=== PATIENT | male | born 1955 | race Caucasian/White ===

== ENCOUNTER 2019-04-16 10:51 | Emergency (ER) | payer OTHER, MEDICAID ==
[2019-04-16 11:43] LABS: % BASOPHILS 0.5 % (0.0-2.0); % EOSINOPHILS 5.9 % (0.0-5.0); % LYMPHOCYTES 28.3 % (20.0-50.0); % MONOCYTES 14.7 % (2.0-10.0); % NEUTROPHILS 50.6 % (40.0-80.0); EOSINOPHILE ABSOLUTE 0.4 Th/cmm (0.1-0.4); HEMATOCRIT 30.2 % (41.0-60); HEMOGLOBIN 9.2 gm/dL (12-16); LYMPHOCYTE ABSOLUTE 1.9 Th/cmm (1.5-3.0); MEAN CELL VOLUME 69.5 fl (80-99); MEAN CORPUSCULAR HEMOGLOBIN 21.2 pg (27.0-31.0); MEAN CORPUSCULAR HGB CONC 30.5 pg (28.0-36.0); NEUTROPHILE ABSOLUTE 3.3 Th/cmm (1.8-8.0); PLATELET COUNT 468 Th/cmm (150-400); RED BLOOD COUNT 4.35 Mil/cmm (3.80-5.80); RED CELL DISTRIBUTION WIDTH 19.5 % (11.5-20.0); WHITE BLOOD COUNT 6.6 Th/cmm (4.8-10.8)
--- NOTE | 2019-04-16 11:44 | ED Physician Chart ---
ED Chief Complaint/HPI - Patient Information Date Seen:: 04/16/19 Time Seen:: 11:08 Chief Complaint:: weakness History of Present Illness:: THIS IS A 63 YO MALE WHO IS CHRONICALLY ILL AND IN A WHEELCHAIR BECAUSE OF BACK SURGERY. HE STATES THAT HE FELL LAST NIGHT BUT DENIES THAT HE HAS INJURIES. HE STATES THAT HE HAS BACK PROBLEMS AND HAS HAD MANY SURGERIES. Allergies:: Allergies Allergy/AdvReac Type Severity Reaction Status Date / Time No Known Allergies Allergy Verified 04/16/19 11:01 Vitals:: Vital Signs - 8 hr 04/16/19 11:02 Temp 97.1 F HR 87 RR 18 BP 118/90 O2 Sat % 97 Historian:: Patient Review:: Nurse's Note Reviewed ED Review of Systems - Review of Systems General/Constitutional: No fever, No chills, Weight loss, No weakness, No diaphoresis, Edema, No loss of appetite Skin: No skin lesions, No rash, No bruising Head: No headache, No light-headedness Eyes: No loss of vision, No pain, No diplopia ENT: No earache, No nasal drainage, No sore throat, No tinnitus Neck: No neck pain, No swelling, No thyromegaly, No stiffness, No mass noted Cardio Vascular: No chest pain, No palpitations, No PND, No orthopnea, edema Pulmonary: No SOB, No cough, No sputum, No wheezing GI: No nausea, No vomiting, No diarrhea, No pain, No melena, No hematochezia, No constipation, No hematemesis G/U: No dysuria, No frequency, No hematuria, Other (INCONTINENT OF URINE) Musculoskeletal: No bone or joint pain, Back pain, No muscle pain Endocrine: No polyuria, No polydipsia Psychiatric: No prior psych history, Depression, No anxiety, No suicidal ideation Hematopoietic: No bruising, No lymphadenopathy Allergic/Immuno: No urticaria, No angioedema Neurological: No syncope, No focal symptoms, No weakness, No paresthesia, No headache, No seizure, No dizziness, No confusion, No vertigo ED Past Medical History - Past Medical History Obtainable: Yes Past Medical History: CAD, Arthritis Family History: None Social History: Non Smoker, No Alcohol, No Drug Use, Lives Alone Surgical History: Pacemaker, other (PROSTATE REMOVED) Psychiatricy History: None Medication: Reviewed Family Medical History - Family Member Mother History Unknown: Yes ED Physical Exam - Physical Examination General/Constitutional: Awake, Well-developed, well-nourished, Alert, No distress, GCS 15, Non-toxic appearing, Ambulatory Other Gen/Cons comments:: LOOKS UNKEPT AND SMELL LIKE URINE Head: Atraumatic Eyes: Lids, conjuctiva normal, PERRL, EOMI Skin: Nl inspection, No rash, No skin lesions, No ecchymosis, Well hydrated, No lymphadenopathy ENMT: External ears, nose nl, Nasal exam nl, Lips, teeth, gums nl (TEETH IN POOR REPAIR) Neck: Nontender, Full ROM w/o pain, No JVD, No nuchal rigidity, No bruit, No mass, No stridor Respiratory: Nl effort/Exclusion, Clear to Auscultation, No Wheeze/Rhonchi/Rales Cardio Vascular: RRR, No murmur, gallop, rubs, NL S1 S2 GI: No tenderness/rebounding/guarding, No organomegaly, No hernia, Normal BS's, Nondistended, No mass/bruits, No McBurney tenderness : No CVA tenderness Extremities: No tenderness or effusion, Full ROM, normal strength in all extremities (THE RIGHT LOWER EXTREMITY MUSCLE WASTING AND BOTH HAVE MILD EDEMA.) , Normal digits & nails Neuro/Psych: Alert/oriented, DTR's symmetric, Normal sensory exam, Normal motor strength (MILD BILATERAL LOWER EXTREMITIES WEAKNESS), Judgement/insight normal, Mood normal (DEPRESSED), Normal gait, No focal deficits Misc: Normal back (MULTIPLE SCAR FROM BACK SURGERY), No paraspinal tenderness ED Labs/Radiology/EKG Results - Radiology Results Results: CHEST X-RAY = NAD WITH A SMALL HEART AND RIGHT HILAR [place] AREAS NOTED. - EKG Interpretations EKG Time:: 11:46 Rate & Rhythm: RATE= 74 SINUS [place]: RIGHT AXIS ED Assessment - Assessment General Assessment: dehydration anemia ED Septic Shock - . Is Septic Shock (SBP<90, OR Lactate>4 mmol\L) present?: No - <6hrs of presentation: Vital Signs: Vital Signs - 8 hr 04/16/19 11:02 Temp 97.1 F HR 87 RR 18 BP 118/90 O2 Sat % 97 ED Reassessment (Disposition) - Reassessment Reassessment Condition:: Improved - Diagnosis Diagnosis:: dehydration anemia - Aftercare/Follow up Instructions Aftercare/Follow-Up Instructions:: Counseled pt regarding lab results/diagnosis & need follow up, Refer to Discharge Instructions, Counseled pt & family regarding lab results/diagnosis & need follow up Medication Prescribed:: fanatrex - Patient Disposition Discharge/Transfer:: Home Condition at Disposition:: Improved
[2019-04-16 11:54] LABS: INR 0.95 (0.5-1.4)
[2019-04-16 11:59] LABS: ALB/GLOB RATIO 1.3 (1.0-1.8); ALBUMIN 3.7 gm/dL (4.2-5.5); ALKALINE PHOSPHATASE 64 U/L (34-104); ANION GAP 9.9 (7.0-16.0); BILIRUBIN,TOTAL 0.8 mg/dL (0.3-1.0); BUN - UREA NITROGEN 15 mg/dL (7-25); CARBON DIOXIDE 23.7 mEq/L (21.0-31.0); CHLORIDE 110 mEq/L (98-107); CREATININE - SERUM 0.8 mg/dL (0.7-1.3); GFR AFRICAN-AMERICAN > 60.0 ml/min (>90); GFR NON AFRICAN-AMERICAN > 60.0 ml/min; GLUCOSE 123 mg/dL (70-105); POTASSIUM SERUM 3.6 mEq/L (3.5-5.1); SGOT 28 U/L (13-39); SGPT/ALT 24 U/L (7-52); SODIUM SERUM 140 mEq/L (136-145); TOTAL PROTEIN,SERUM 6.6 gm/dL (6.0-8.3)
[2019-04-16 12:00] LABS: CHOLESTEROL 140 mg/dL (<200); HDL -HIGH DENSITY LIPOPROTEIN 33 mg/dL (23-92); TRIGLYCERIDES 78 mg/dL (<150)
[2019-04-16] MEDS ORDERED: Naloxone 0.4 mg/mL 1mL Vial ONE (14:14)
--- NOTE | 2019-04-17 10:56 | Diagnostic Imaging Report ---
CHEST X-RAY: AP view INDICATION: Weakness COMPARISON: None FINDINGS: Left chest wall pacer is noted with leads in the region of the right atrium and right ventricle. There is mild elevation of the right hemidiaphragm. There is probably calcifications along the left base possibly pleural. Heart size is normal. Degenerative changes of the spine are noted with scoliosis. IMPRESSION: Low lung markings with no focal consolidation identified. Probable calcifications of the left lung base which may be pleural. These correlate clinically for previous infectious/inflammatory process or possible asbestos exposure. Pacemaker.
--- NOTE | 2019-04-17 11:02 | Diagnostic Imaging Report ---
Bilateral lower extremity DVT study HISTORY: Pain, bilateral leg swelling, elevated d-dimer COMPARISON: None Technique: Longitudinal and transverse sonographic images of the bilateral lower extremity veins were obtained with doppler analysis. FINDINGS: There is normal compressibility, augmentation and phasicity of the bilateral common femoral, superficial femoral, popliteal, and posterior tibial veins. No thrombus is visualized. IMPRESSION: No evidence of thrombus within the bilateral lower extremity veins.
== END 2019-04-16 17:26 | disposition home or self-care (01) ==
LOC: ER 10:51
DX: E86.0 Dehydration (principal); D64.9 Anemia, unspecified; I25.10 Atherosclerotic heart disease of native coronary artery without angina pectoris; M19.90 Unspecified osteoarthritis, unspecified site; Z95.1 Presence of aortocoronary bypass graft
CPT/HCPCS: 36415-UA; 71045-TC; 80053-TC; 80061-TC; 84443-TC; 84484-TC; 85025-TC; 85379-TC; 85610-TC; 85730-TC; 86592-TC; 93005; 93970-TC-50; X6614